=== PATIENT | male | born 1955 | race Two or more races ===

== ENCOUNTER 2017-09-15 11:09 | Inpatient (IN) | payer OTHER ==
[2017-09-15 11:21] VITALS: BMI 26.3
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
[2017-09-15] MEDS ORDERED: MAGNESIUM HYDROX 2400MG/30ML ORAL SUSPENSION 30 ML CUP PO PRN (14:30)
[2017-09-15] MEDS ORDERED: MENTHOL/PHENOL 1 EACH UD MM PRN (14:30)
[2017-09-15] MEDS ORDERED: MAG HYDROX/AL HYDROX/SIMETH 30 ML UNIT-DOSE CUP PO PRN (14:30)
[2017-09-15] MEDS ORDERED: P-EPHED 60MG/TRIPROLIDI 2.5MG TABLET PO PRN (14:30)
[2017-09-15] MEDS ORDERED: ACETAMINOPHEN 325 MG TABLET (FP) PO PRN (14:30)
[2017-09-15] MEDS ORDERED: chlordiazePOXIDE HCL 25 MG CAPSULE PO PRN (14:30)
[2017-09-15] MEDS ORDERED: IBUPROFEN 400 MG TABLET (FP) PO PRN (14:30)
[2017-09-15] MEDS ORDERED: LOPERAMIDE HCL 2 MG CAPSULE PO PRN (14:30)
[2017-09-15] MEDS ORDERED: guaiFENesin/D-METHORPHAN HB 10 ML UNIT-DOSE CUPS PO PRN (14:30)
[2017-09-15] MEDS ORDERED: MAGNESIUM CITRATE 300 ML BOTTLE PO PRN (14:30)
[2017-09-15] MEDS ORDERED: ALBUTEROL SO4 18 GM HFA INHALER IH PRN (14:35)
[2017-09-15] MEDS ORDERED: chlordiazePOXIDE HCL 25 MG CAPSULE PO ONE (15:00)
[2017-09-15] MEDS ORDERED: METHADONE HCL 10 MG TABLET (FOR DETOX USE ONLY) PO ONE ×2 (15:00→23:00)
[2017-09-15] MEDS: chlordiazePOXIDE HCL 25 MG CAPSULE PO SCH ×2 (17:02→22:11)
[2017-09-15 18:24] LABS: HEMATOCRIT 40.2 % (35.4-49); HEMOGLOBIN 13.5 GM/dL (11.7-16.9); MCH 32.3 pg (25.7-33.7); MCHC 33.7 g/dl (32.0-35.9); MEAN CELL VOLUME 95.9 fl (80-96); MEAN PLT VOLUME 9.4 fl (7.5-11.1); PLATELET COUNT 259 K/MM3 (134-434); RBC 4.19 M/mm3 (4.00-5.60); RDW 14.9 % (11.9-15.9); WHITE BLOOD COUNT 5.7 K/mm3 (4.0-10.0)
[2017-09-15 18:35] LABS: ALBUMIN 3.3 g/dl (3.4-5.0); ANION GAP 1 (8-16); BILIRUBIN,TOTAL 0.2 mg/dL (0.2-1.0); BLOOD UREA NITROGEN 11 mg/dL (7-18); CALCIUM 8.1 mg/dL (8.5-10.1); CHLORIDE 108 mmol/L (98-107); CO2 32 mmol/L (21-32); GLUCOSE,RANDOM 123 mg/dL (74-106); POTASSIUM 4.3 mmol/L (3.5-5.1); SGOT/AST 11 U/L (15-37); SGPT/ALT 16 U/L (12-78); SODIUM 141 mmol/L (136-145); TOT PROT 6.3 g/dl (6.4-8.2)
[2017-09-15 18:36] LABS: ALK PHOS 107 U/L (45-117)
[2017-09-15] MEDS: THIAMINE HCL 100 MG TABLET (FP) PO SCH (22:10)
[2017-09-15] MEDS: MELATONIN 5 MG TABLETS PO PRN (22:12)
[2017-09-16] MEDS: chlordiazePOXIDE HCL 25 MG CAPSULE PO SCH ×4 (08:02→22:37)
--- NOTE | 2017-09-16 09:52 | EKG ---
Test Reason : Blood Pressure : / mmHG Vent. Rate : 075 BPM Atrial Rate : 075 BPM P-R Int : 158 ms QRS Dur : 098 ms QT Int : 386 ms P-R-T Axes : 053 026 041 degrees QTc Int : 431 ms NORMAL SINUS RHYTHM NORMAL ECG NO PREVIOUS ECGS AVAILABLE Confirmed by MASSIEL VARELA MD ([id number]) on 09/16/2017 9:52:01 AM Referred By: Confirmed By:MASSIEL VARELA MD
[2017-09-16] MEDS ORDERED: METHADONE HCL 10 MG TABLET (FOR DETOX USE ONLY) PO SCH (10:00)
[2017-09-16] MEDS: PRENATAL VITAMINS W/ FOLIC ACID TABLET (FP) PO SCH (10:36)
[2017-09-16] MEDS ORDERED: CYCLOBENZAPRINE HCL 10 MG TABLET (FP) PO PRN (11:50)
--- NOTE | 2017-09-16 15:10 | PN ---
S CIWA - CIWA Score Nausea/Vomitin-No Nausea/No Vomiting Muscle Tremors: 3 Anxiety: 4-Mod. Anxious/Guarded Agitation: 4-Moderately Restless Paroxysmal Sweats: No Perspiration Orientation: 0-Oriented Tacttile Disturbances: 3-Moderate Itch/Numb/Burn Auditory Disturbances: 0-None Visual Disturbances: 2-Mild Sensitivity Headache: 0-None Present CIWA-Ar Total Score: 16 BHS COWS - Scale Resting Pulse: 0= [place] 80 or Below Sweatin= Chills/Flushing Restless Observation: 1= Difficult to Sit Still Pupil Size: 0= Normal to Room Light Bone or Joint Aches: 0= None Runny Nose/ Eye Tearin= Nasal Congestion GI Upset > 30mins: 2= Nausea/Diarrhea Tremor Observation of Outstretched Hands: 2= Slight Tremor Visible Yawning Observation: 1= 1-2x During Session Anxiety or Irritability: 2=Irritable/Anxious Goose Flesh Skin: 3=Piloerection COWS Score: 13 BHS Progress Note (SOAP) Subjective: Diarrhea, Anxious, Fatigue, Tremors. Objective: PATIENT A & O X 3, OBSERVED AMBULATING ON UNIT. NO ACUTE DISTRESS. 09/16/17 15:07 Vital Signs Temperature 97.1 F L 09/16/17 14:13 Pulse Rate 74 09/16/17 14:13 Respiratory Rate 16 09/16/17 14:13 Blood Pressure 117/88 09/16/17 14:13 O2 Sat by Pulse Oximetry (%) Laboratory Tests 09/15/17 09/15/17 09/15/17 15:00 15:00 15:15 WBC 5.7 D RBC 4.19 Hgb 13.5 Hct 40.2 MCV 95.9 MCH 32.3 MCHC 33.7 RDW 14.9 Plt Count 259 D MPV 9.4 Sodium 141 Potassium 4.3 Chloride 108 H Carbon Dioxide 32 D Anion Gap 1 L BUN 11 D Creatinine 1.0 D Creat Clearance w eGFR > 60 Random Glucose 123 H Calcium 8.1 L Total Bilirubin 0.2 D AST 11 L D ALT 16 D Alkaline Phosphatase 107 D Total Protein 6.3 L Albumin 3.3 L D RPR Titer Nonreactive LABS NOTED. UA RESULTS PENDING. 09/16/17 15:09 Assessment: 09/16/17 15:08 WITHDRAWAL SYMPTOMS. Plan: CONTINUE DETOX. INCREASE DAILY PO FLUID INTAKE.
[2017-09-16] MEDS: THIAMINE HCL 100 MG TABLET (FP) PO SCH (22:37)
[2017-09-16] MEDS: MELATONIN 5 MG TABLETS PO PRN (22:39)
[2017-09-17] MEDS: chlordiazePOXIDE HCL 25 MG CAPSULE PO SCH ×2 (06:07→10:05)
[2017-09-17] MEDS ORDERED: METHADONE HCL 5 MG TABLET (FOR DETOX USE ONLY) PO SCH (10:00)
[2017-09-17] MEDS: PRENATAL VITAMINS W/ FOLIC ACID TABLET (FP) PO SCH (10:05)
--- NOTE | 2017-09-17 14:46 | PN ---
S CIWA - CIWA Score Nausea/Vomitin-Int. Nausea w/Dry Heave Muscle Tremors: None Anxiety: 4-Mod. Anxious/Guarded Agitation: 4-Moderately Restless Paroxysmal Sweats: 4-Forehead w/Sweat Beads Orientation: 0-Oriented Tacttile Disturbances: 1-Very Mild Itch/Numbness Auditory Disturbances: 0-None Visual Disturbances: 0-None Headache: 0-None Present CIWA-Ar Total Score: 17 BHS COWS - Scale Resting Pulse: 0= [place] 80 or Below Sweatin=Flushed/Facial Moisture Restless Observation: 3= Extraneous Movement Pupil Size: 0= Normal to Room Light Bone or Joint Aches: 2= Severe Diffuse Aches Runny Nose/ Eye Tearin= Runny Nose/Eyes GI Upset > 30mins: 3= Vomiting/Diarrhea Tremor Observation of Outstretched Hands: 0= None Yawning Observation: 2= >3x During Session Anxiety or Irritability: 2=Irritable/Anxious Goose Flesh Skin: 0=Smooth Skin COWS Score: 16 S Progress Note (SOAP) Subjective: N/V/D, irritable, angry, anxious Objective: 09/17/17 14:44 Last Vital Signs Temp Pulse Resp BP Pulse Ox 96.1 F L 76 18 120/75 09/17/17 13:47 09/17/17 13:47 09/17/17 13:47 09/17/17 13:47 Laboratory Tests 09/15/17 09/15/17 09/15/17 15:00 15:00 15:15 WBC 5.7 D RBC 4.19 Hgb 13.5 Hct 40.2 MCV 95.9 MCH 32.3 MCHC 33.7 RDW 14.9 Plt Count 259 D MPV 9.4 Sodium 141 Potassium 4.3 Chloride 108 H Carbon Dioxide 32 D Anion Gap 1 L BUN 11 D Creatinine 1.0 D Creat Clearance w eGFR > 60 Random Glucose 123 H Calcium 8.1 L Total Bilirubin 0.2 D AST 11 L D ALT 16 D Alkaline Phosphatase 107 D Total Protein 6.3 L Albumin 3.3 L D RPR Titer Nonreactive Labs reviewed Assessment: 09/17/17 14:45 Withdrawal symptoms Plan: Continue detox Encouraged PO hydration (water)
--- NOTE | 2017-09-17 18:20 | PN ---
[facility] Progress Note Note: Pt verbalized wanting to leave AMA to nurse but changed his mind after being educated and calmed by RN RANDOLPH Borrego. Pt c/o of rash to legs and when told that provider is busy with other pts, threatened to leave also. Provider explained that there are other very sick pts at this time and that this provider or another can assess pt's rash later. Pt agreeable to stay to complete detox. Pt's mood labile, but will continue to encourage completion of detox
[2017-09-17] MEDS: chlordiazePOXIDE 5 MG CAPSULE PO SCH ×2 (18:21→22:42)
[2017-09-17] MEDS: THIAMINE HCL 100 MG TABLET (FP) PO SCH (22:42)
[2017-09-18] MEDS: chlordiazePOXIDE 5 MG CAPSULE PO SCH (05:27)
[2017-09-18 09:18] VITALS: BP 124/80; PULSE 73; TEMP 97.5
[2017-09-18] MEDS ORDERED: TOLNAFTATE 1% CREAM 15 GM TUBE TP SCH (10:00)
--- NOTE | 2017-09-18 11:36 | PN ---
BHS Progress Note (SOAP) Subjective: PT DECLINED TO CONTINUE WITH DETOX AND DEMANDED HE WANTS TO LEAVE INSTANTLY, PER NURSE"S REPORT TO THIS PROVIDER. Objective: 09/18/17 11:39 Vital Signs Temperature 97.5 F L 09/18/17 09:17 Pulse Rate 73 09/18/17 09:17 Respiratory Rate 18 09/18/17 09:17 Blood Pressure 124/80 09/18/17 09:17 O2 Sat by Pulse Oximetry (%) Laboratory Tests 09/15/17 09/15/17 09/15/17 15:00 15:00 15:15 WBC 5.7 D RBC 4.19 Hgb 13.5 Hct 40.2 MCV 95.9 MCH 32.3 MCHC 33.7 RDW 14.9 Plt Count 259 D MPV 9.4 Sodium 141 Potassium 4.3 Chloride 108 H Carbon Dioxide 32 D Anion Gap 1 L BUN 11 D Creatinine 1.0 D Creat Clearance w eGFR > 60 Random Glucose 123 H Calcium 8.1 L Total Bilirubin 0.2 D AST 11 L D ALT 16 D Alkaline Phosphatase 107 D Total Protein 6.3 L Albumin 3.3 L D RPR Titer Nonreactive Assessment: 09/18/17 11:39 NAD Plan: PT SIGNED OUT AMA
--- NOTE | 2017-09-18 11:45 | DS ---
[facility] Detox Discharge Summary Admission Date: 09/15/17 Discharge Date: 09/18/17 - History Present History: Alcohol Dependence, Cocaine Dependence, Opioid Dependence Additional Comments: PT DECLINED TO CONTINUE WITH DETOX. ALERT O X 3. NAD. Pertinent Past History: SEE DX BELOW - Physical Exam Results Vital Signs: Vital Signs Temperature 97.5 F L 09/18/17 09:17 Pulse Rate 73 09/18/17 09:17 Respiratory Rate 18 09/18/17 09:17 Blood Pressure 124/80 09/18/17 09:17 O2 Sat by Pulse Oximetry (%) Pertinent Admission Physical Exam Findings: WITHDRAWAL SX Laboratory Last Values WBC 5.7 K/mm3 (4.0-10.0) D 09/15/17 15:00 RBC 4.19 M/mm3 (4.00-5.60) 09/15/17 15:00 Hgb 13.5 GM/dL (11.7-16.9) 09/15/17 15:00 Hct 40.2 % (35.4-49) 09/15/17 15:00 MCV 95.9 fl (80-96) 09/15/17 15:00 MCH 32.3 pg (25.7-33.7) 09/15/17 15:00 MCHC 33.7 g/dl (32.0-35.9) 09/15/17 15:00 RDW 14.9 % (11.9-15.9) 09/15/17 15:00 Plt Count 259 K/MM3 (134-434) D 09/15/17 15:00 MPV 9.4 fl (7.5-11.1) 09/15/17 15:00 Sodium 141 mmol/L (136-145) 09/15/17 15:00 Potassium 4.3 mmol/L (3.5-5.1) 09/15/17 15:00 Chloride 108 mmol/L (98-107) H 09/15/17 15:00 Carbon Dioxide 32 mmol/L (21-32) D 09/15/17 15:00 Anion Gap 1 (8-16) L 09/15/17 15:00 BUN 11 mg/dL (7-18) D 09/15/17 15:00 Creatinine 1.0 mg/dL (0.7-1.3) D 09/15/17 15:00 Creat Clearance w eGFR > 60 (>60) 09/15/17 15:00 Random Glucose 123 mg/dL (74-106) H 09/15/17 15:00 Calcium 8.1 mg/dL (8.5-10.1) L 09/15/17 15:00 Total Bilirubin 0.2 mg/dL (0.2-1.0) D 09/15/17 15:00 AST 11 U/L (15-37) L D 09/15/17 15:00 ALT 16 U/L (12-78) D 09/15/17 15:00 Alkaline Phosphatase 107 U/L (45-117) D 09/15/17 15:00 Total Protein 6.3 g/dl (6.4-8.2) L 09/15/17 15:00 Albumin 3.3 g/dl (3.4-5.0) L D 09/15/17 15:00 RPR Titer Nonreactive (NONREACTIVE) 09/15/17 15:15 - Treatment Hospital Course: Discharged Condition Good - Medication Discharge Medications: Ambulatory Orders Albuterol Sulfate Inhaler - [Ventolin Hfa Inhaler -] 2 inh PO Q4H PRN 03/14/16 - Diagnosis (1) Alcohol dependence with uncomplicated withdrawal Status: Acute (2) Opioid dependence with withdrawal Status: Acute (3) Asthma Status: Chronic - AMA Did Patient Leave Against Medical Advice: Yes (AMA)
[2017-09-18] MEDS ORDERED: chlordiazePOXIDE HCL 10 MG CAPSULE PO SCH (17:00)
[2017-09-19] MEDS ORDERED: METHADONE HCL 10 MG TABLET (FOR DETOX USE ONLY) PO SCH (10:00)
[2017-09-20] MEDS ORDERED: METHADONE HCL 5 MG TABLET (FOR DETOX USE ONLY) PO SCH (06:00)
== END 2017-09-18 09:30 | disposition left against medical advice (07) | DRG 770 ==
LOC: YASAS 11:09 → Y3N 14:51
PROVIDERS: ADMIT Internal Medicine; ATTEND Internal Medicine
PROC: HZ2ZZZZ Detoxification Services for Substance Abuse Treatment (ICD-10-PCS; principal; 2017-09-15)
DX: F11.23 Opioid dependence with withdrawal (principal); F10.230 Alcohol dependence with withdrawal, uncomplicated; F14.20 Cocaine dependence, uncomplicated; J45.909 Unspecified asthma, uncomplicated; Z87.828 Personal history of other (healed) physical injury and trauma
CPT/HCPCS: 36415; 80053; 85027; 86593; 93005; 93010

== ENCOUNTER 2018-01-23 14:57 | Inpatient (IN) | payer OTHER ==
[2018-01-23 15:54] VITALS: BMI 26.5
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
[2018-01-23] MEDS ORDERED: MAGNESIUM CITRATE 300 ML BOTTLE PO PRN (18:27)
[2018-01-23] MEDS ORDERED: ACETAMINOPHEN 325 MG TABLET (FP) PO PRN (18:27)
[2018-01-23] MEDS ORDERED: MENTHOL/PHENOL 1 EACH UD MM PRN (18:27)
[2018-01-23] MEDS ORDERED: MAG HYDROX/AL HYDROX/SIMETH 30 ML UNIT-DOSE CUP PO PRN (18:27)
[2018-01-23] MEDS ORDERED: P-EPHED 60MG/TRIPROLIDI 2.5MG TABLET PO PRN (18:27)
[2018-01-23] MEDS ORDERED: chlordiazePOXIDE HCL 25 MG CAPSULE PO PRN (18:27)
[2018-01-23] MEDS ORDERED: IBUPROFEN 400 MG TABLET (FP) PO PRN (18:27)
[2018-01-23] MEDS ORDERED: LOPERAMIDE HCL 2 MG CAPSULE PO PRN (18:27)
[2018-01-23] MEDS ORDERED: MAGNESIUM HYDROX 2400MG/30ML ORAL SUSPENSION 30 ML CUP PO PRN (18:27)
[2018-01-23] MEDS ORDERED: hydrOXYzine PAMOATE 50 MG CAPSULE (FP) PO PRN (18:30)
[2018-01-23] MEDS ORDERED: ALBUTEROL SO4 8 GM HFA INHALER IH PRN (18:32)
[2018-01-23] MEDS ORDERED: METHADONE HCL 10 MG TABLET (FOR DETOX USE ONLY) PO ONE ×2 (19:00→23:00)
[2018-01-23] MEDS ORDERED: chlordiazePOXIDE HCL 25 MG CAPSULE PO ONE (19:00)
[2018-01-23] MEDS: guaiFENesin/D-METHORPHAN HB 10 ML UNIT-DOSE CUPS PO SCH (19:50)
[2018-01-23] MEDS: ALBUTEROL SO4 0.083% IH SOL 2.5 MG/3 ML VIAL.NEB. NEB SCH (19:53)
[2018-01-23] MEDS: chlordiazePOXIDE HCL 25 MG CAPSULE PO SCH (22:13)
[2018-01-23] MEDS: MELATONIN 5 MG TABLETS PO PRN (22:13)
[2018-01-23] MEDS: THIAMINE HCL 100 MG TABLET (FP) PO SCH (22:13)
[2018-01-23 23:34] LABS: URINE APPEARANCE CLEAR; URINE BILIRUBIN NEGATIVE (<2.0 mg/dL); URINE COLOR YELLOW; URINE GLUCOSE (UA) NEGATIVE (NEGATIVE); URINE KETONE NEGATIVE (NEGATIVE); URINE LEUK ESTERASE TRACE (NEGATIVE); URINE NITRITE NEGATIVE (NEGATIVE); URINE PROTEIN NEGATIVE (NEGATIVE); URINE UROBILINOGEN NEGATIVE mg/dL (0.2-1.0)
[2018-01-23 23:42] LABS: EPI CELLS RARE /HPF (FEW); URINE HYALINE CAST 1 /lpf; URINE MUCUS RARE
[2018-01-24] MEDS: guaiFENesin/D-METHORPHAN HB 10 ML UNIT-DOSE CUPS PO SCH ×2 (00:55→07:12)
[2018-01-24] MEDS: ALBUTEROL SO4 0.083% IH SOL 2.5 MG/3 ML VIAL.NEB. NEB SCH ×2 (00:55→07:12)
[2018-01-24] MEDS: chlordiazePOXIDE HCL 25 MG CAPSULE PO SCH ×4 (06:09→22:20)
[2018-01-24 09:58] LABS: HEMATOCRIT 42.7 % (35.4-49); HEMOGLOBIN 13.6 GM/dL (11.7-16.9); MCH 30.4 pg (25.7-33.7); MCHC 31.9 g/dl (32.0-35.9); MEAN CELL VOLUME 95.5 fl (80-96); MEAN PLT VOLUME 9.3 fl (7.5-11.1); PLATELET COUNT 204 K/MM3 (134-434); RBC 4.47 M/mm3 (4.00-5.60); RDW 15.2 % (11.9-15.9); WHITE BLOOD COUNT 5.6 K/mm3 (4.0-10.0)
[2018-01-24] MEDS ORDERED: METHADONE HCL 10 MG TABLET (FOR DETOX USE ONLY) PO SCH (10:00)
[2018-01-24] MEDS: PRENATAL VITAMINS W/ FOLIC ACID TABLET (FP) PO SCH (10:07)
--- NOTE | 2018-01-24 10:07 | PN ---
S CIWA - CIWA Score Nausea/Vomitin-No Nausea/No Vomiting Muscle Tremors: 4-Moderate,w/Arms Extend Anxiety: 4-Mod. Anxious/Guarded Agitation: 4-Moderately Restless Paroxysmal Sweats: 1-Minimal Palms Moist Orientation: 0-Oriented Tacttile Disturbances: 0-None Auditory Disturbances: 0-None Visual Disturbances: 0-None Headache: 0-None Present CIWA-Ar Total Score: 13 BHS COWS - Scale Resting Pulse: 0= [place] 80 or Below Sweatin= Chills/Flushing Restless Observation: 3= Extraneous Movement Pupil Size: 2= Moderately Dilated Bone or Joint Aches: 4=Acute Joint/Muscle Pain Runny Nose/ Eye Tearin= Nasal Congestion GI Upset > 30mins: 0= None Tremor Observation of Outstretched Hands: 1= Tremor [place], Not Seen Yawning Observation: 0= None Anxiety or Irritability: 2=Irritable/Anxious Goose Flesh Skin: 0=Smooth Skin COWS Score: 14 S Progress Note (SOAP) Subjective: ANXIETY, SWEATS/CHILLS,IRRITABILITY,MUSCLE ACHES,INTERMITTENT SLEEP. Objective: 01/24/18 10:06 Vital Signs 01/24/18 01/24/18 01/24/18 03:30 06:30 09:58 Temperature 97.6 F 98.5 F Pulse Rate 56 L 67 Respiratory 18 18 18 Rate Blood Pressure 106/68 104/65 Laboratory Tests 01/23/18 22:13 Urine Color Yellow Urine Appearance Clear Urine pH 5.0 Ur Specific [place] 1.017 Urine Protein Negative Urine Glucose (UA) Negative Urine Ketones Negative Urine Blood Negative Urine Nitrite Negative Urine Bilirubin Negative Urine Urobilinogen Negative Ur Leukocyte Esterase Trace Urine WBC (Auto) 7 Urine RBC (Auto) <1 Ur Epithelial Cells Rare Hyaline Casts 1 Urine Mucus Rare OTHER LABS PENDING Assessment: 01/24/18 10:06 WITHDRAWAL SX Plan: CONTINUE DETOX
[2018-01-24 10:08] LABS: ALBUMIN 3.1 g/dl (3.4-5.0); ALK PHOS 76 U/L (45-117); ANION GAP 8 MMOL/L (8-16); BILIRUBIN,TOTAL 0.3 mg/dL (0.2-1.0); BLOOD UREA NITROGEN 18 mg/dL (7-18); CALCIUM 8.6 mg/dL (8.5-10.1); CHLORIDE 106 mmol/L (98-107); CO2 29 mmol/L (21-32); CREATININE 1.1 mg/dL (0.7-1.3); GLUCOSE,RANDOM 80 mg/dL (74-106); POTASSIUM 4.3 mmol/L (3.5-5.1); SGOT/AST 10 U/L (15-37); SGPT/ALT 16 U/L (12-78); SODIUM 143 mmol/L (136-145); TOT PROT 6.2 g/dl (6.4-8.2)
[2018-01-24] MEDS ORDERED: guaiFENesin/D-METHORPHAN HB 10 ML UNIT-DOSE CUPS PO PRN (10:08)
--- NOTE | 2018-01-24 10:44 | EKG ---
Test Reason : Blood Pressure : / mmHG Vent. Rate : 053 BPM Atrial Rate : 053 BPM P-R Int : 156 ms QRS Dur : 100 ms QT Int : 444 ms P-R-T Axes : 030 040 043 degrees QTc Int : 416 ms SINUS BRADYCARDIA INCOMPLETE RIGHT BUNDLE BRANCH BLOCK BORDERLINE ECG WHEN COMPARED WITH ECG OF 15-SEP-2017 17:03, NO SIGNIFICANT CHANGE WAS FOUND Confirmed by MASSIEL VARELA MD ([id number]) on 01/24/2018 10:44:31 AM Referred By: Confirmed By:MASSIEL VARELA MD
--- NOTE | 2018-01-24 19:22 | CONSULT ---
[facility] Psychiatric Consult - Data Date of interview: 01/24/18 Admission source: [facility] Identifying data: Patient is approached at bedside for psychiatric consult.Mr Kuhn declines." I don't want to talk to no one.Thank you." Nursing staff made aware.
[2018-01-24] MEDS: THIAMINE HCL 100 MG TABLET (FP) PO SCH (22:20)
[2018-01-24] MEDS: MELATONIN 5 MG TABLETS PO PRN (22:21)
[2018-01-25] MEDS: ALBUTEROL SO4 0.083% IH SOL 2.5 MG/3 ML VIAL.NEB. NEB SCH ×3 (00:55→18:50)
[2018-01-25] MEDS: chlordiazePOXIDE HCL 25 MG CAPSULE PO SCH ×3 (07:12→17:30)
[2018-01-25] MEDS: PRENATAL VITAMINS W/ FOLIC ACID TABLET (FP) PO SCH (10:06)
[2018-01-25] MEDS: METHADONE HCL 5 MG TABLET (FOR DETOX USE ONLY) PO SCH (10:06)
[2018-01-25] MEDS: THIAMINE HCL 100 MG TABLET (FP) PO SCH (22:13)
[2018-01-25] MEDS: chlordiazePOXIDE 5 MG CAPSULE PO SCH (22:14)
[2018-01-25] MEDS: MELATONIN 5 MG TABLETS PO PRN (22:15)
--- NOTE | 2018-01-25 22:35 | PN ---
[facility] CIWA - CIWA Score Nausea/Vomitin-No Nausea/No Vomiting Muscle Tremors: 3 Anxiety: 3 Agitation: 2 Paroxysmal Sweats: 3 Orientation: 0-Oriented Tacttile Disturbances: 2-Mild Itch/Numbness/Burn Auditory Disturbances: 2-Mild Harshness/Frighten Visual Disturbances: 1-Very Mild Sensitivity Headache: 0-None Present CIWA-Ar Total Score: 16 BHS COWS - Scale Resting Pulse: 0= [place] 80 or Below Sweatin= Chills/Flushing Restless Observation: 1= Difficult to Sit Still Pupil Size: 0= Normal to Room Light Bone or Joint Aches: 2= Severe Diffuse Aches Runny Nose/ Eye Tearin= None GI Upset > 30mins: 1= Stomach Cramp Tremor Observation of Outstretched Hands: 2= Slight Tremor Visible Yawning Observation: 1= 1-2x During Session Anxiety or Irritability: 2=Irritable/Anxious Goose Flesh Skin: 3=Piloerection COWS Score: 13 S Progress Note (SOAP) Subjective: Tremors, Sweating, Stomach Cramping, Body Aches. Objective: PATIENT A & O X 3, OBSERVED AMBULATING ON UNIT. NO ACUTE DISTRESS. 01/25/18 22:33 Laboratory Tests 01/23/18 01/24/18 01/24/18 22:13 07:20 07:20 WBC 5.6 RBC 4.47 Hgb 13.6 Hct 42.7 MCV 95.5 MCH 30.4 MCHC 31.9 L RDW 15.2 Plt Count 204 D MPV 9.3 Sodium 143 Potassium 4.3 Chloride 106 Carbon Dioxide 29 Anion Gap 8 BUN 18 Creatinine 1.1 Creat Clearance w eGFR > 60 Random Glucose 80 D Calcium 8.6 Total Bilirubin 0.3 AST 10 L ALT 16 Alkaline Phosphatase 76 Total Protein 6.2 L Albumin 3.1 L Urine Color Yellow Urine Appearance Clear Urine pH 5.0 Ur Specific [place] 1.017 Urine Protein Negative Urine Glucose (UA) Negative Urine Ketones Negative Urine Blood Negative Urine Nitrite Negative Urine Bilirubin Negative Urine Urobilinogen Negative Ur Leukocyte Esterase Trace Urine WBC (Auto) 7 Urine RBC (Auto) <1 Ur Epithelial Cells Rare Hyaline Casts 1 Urine Mucus Rare RPR Titer 01/24/18 07:20 WBC RBC Hgb Hct MCV MCH MCHC RDW Plt Count MPV Sodium Potassium Chloride Carbon Dioxide Anion Gap BUN Creatinine Creat Clearance w eGFR Random Glucose Calcium Total Bilirubin AST ALT Alkaline Phosphatase Total Protein Albumin Urine Color Urine Appearance Urine pH Ur Specific [place] Urine Protein Urine Glucose (UA) Urine Ketones Urine Blood Urine Nitrite Urine Bilirubin Urine Urobilinogen Ur Leukocyte Esterase Urine WBC (Auto) Urine RBC (Auto) Ur Epithelial Cells Hyaline Casts Urine Mucus RPR Titer Nonreactive LABS NOTED. Assessment: 01/25/18 22:33 WITHDRAWAL SYMPTOMS. Plan: CONTINUE DETOX.
[2018-01-26] MEDS: chlordiazePOXIDE 5 MG CAPSULE PO SCH ×3 (06:24→17:40)
[2018-01-26] MEDS: PRENATAL VITAMINS W/ FOLIC ACID TABLET (FP) PO SCH (10:05)
[2018-01-26] MEDS: METHADONE HCL 5 MG TABLET (FOR DETOX USE ONLY) PO SCH (10:05)
[2018-01-26] MEDS: chlordiazePOXIDE HCL 10 MG CAPSULE PO SCH (22:19)
[2018-01-26] MEDS: MELATONIN 5 MG TABLETS PO PRN (22:19)
[2018-01-26] MEDS: THIAMINE HCL 100 MG TABLET (FP) PO SCH (22:23)
[2018-01-27] MEDS: chlordiazePOXIDE HCL 10 MG CAPSULE PO SCH ×3 (05:59→10:01)
[2018-01-27 06:26] VITALS: PULSE 56
[2018-01-27] MEDS ORDERED: METHADONE HCL 10 MG TABLET (FOR DETOX USE ONLY) PO SCH (10:00)
[2018-01-27] MEDS: PRENATAL VITAMINS W/ FOLIC ACID TABLET (FP) PO SCH (10:01)
--- NOTE | 2018-01-27 10:37 | PN ---
[facility] Progress Note (SOAP) Subjective: Pt states he wants to go home today-one day early, says he has family problems and a that he needs to attend to, Could not convince pat to stay Obj Vital Signs - 24 hr 01/26/18 01/26/18 01/26/18 13:22 17:37 21:13 Temperature 97.2 F L 98.6 F 98.1 F Pulse Rate 72 83 76 Respiratory 18 16 18 Rate Blood Pressure 100/60 113/68 116/69 01/27/18 01/27/18 00:30 06:25 Temperature 97.8 F Pulse Rate 56 L Respiratory 18 18 Rate Blood Pressure 94/61 Ass/Plan: pt completed alcohol detox and one day shy of completing opioid detox - pt will sign out AMA today
--- NOTE | 2018-01-27 10:40 | DS ---
[facility] Detox Discharge Summary Admission Date: 01/23/18 Discharge Date: 01/27/18 - History Present History: Alcohol Dependence, Cocaine Dependence, Opioid Dependence, Pcp Dependence Pertinent Past History: pt came in for alcohol and methadone detox- pt without withdrawal Sx, completed alcohol detox and received methadone 10mg today - Physical Exam Results Vital Signs: Vital Signs Temperature 97.8 F 01/27/18 06:25 Pulse Rate 56 L 01/27/18 06:25 Respiratory Rate 18 01/27/18 06:25 Blood Pressure 94/61 01/27/18 06:25 O2 Sat by Pulse Oximetry (%) - Treatment Hospital Course: Detox Protocol Followed, Detoxed Safely, Responded well, Discharged Condition Good Patient has Accepted a Rehab Referral to: pt will f/u with PCP - Medication Discharge Medications: Ambulatory Orders Albuterol Sulfate Inhaler - [Ventolin Hfa Inhaler -] 2 inh PO Q4H PRN 03/14/16
[2018-01-27 11:16] VITALS: BP 100/50; TEMP 97.4
[2018-01-28] MEDS ORDERED: METHADONE HCL 5 MG TABLET (FOR DETOX USE ONLY) PO SCH (06:00)
== END 2018-01-27 14:06 | disposition home or self-care (01) | DRG 773 ==
LOC: YASAS 14:57 → Y3N 17:11
PROC: HZ2ZZZZ Detoxification Services for Substance Abuse Treatment (ICD-10-PCS; principal; 2018-01-23)
DX: F11.23 Opioid dependence with withdrawal (principal); F10.230 Alcohol dependence with withdrawal, uncomplicated; F14.20 Cocaine dependence, uncomplicated; F16.20 Hallucinogen dependence, uncomplicated; F32.9 Major depressive disorder, single episode, unspecified; J45.909 Unspecified asthma, uncomplicated; M54.5 Low back pain; G89.29 Other chronic pain
CPT/HCPCS: 36415; 80053; 81003; 81015; 85027; 86593; 93005; 93010; 94640